=== PATIENT | female | born 1975 ===

== ENCOUNTER 2018-12-03 08:40 | Emergency (ER) | payer OTHER, MEDICAID, SELFPAY ==
[2018-12-03 09:16] VITALS: BP 129/83; PULSE 93; RESP 18; TEMP 36.9; O2SAT 96
--- NOTE | 2018-12-03 09:34 | ED_ITS ---
HPI - Abdominal Pain General Chief Complaint: Abdominal Pain Stated Complaint: throwing up x2 day,stomach pain Time Seen by Provider: 12/03/18 08:45 Source: patient Mode of arrival: Ambulatory Limitations: no limitations History of Present Illness HPI narrative: 43-year-old female former smoker presents with a chief complaint of nausea, vomiting and diarrhea for the past 2-3 days. She complains of gradually building upper abdominal pain that resolves with emesis. She does state that there was some blood in her vomit at 1 point but no longer. She is not dizzy nor weak or lightheaded. She does state that she has been taking Aleve for about the past 6 months for a bad hip. She denies the use of any blood thinners. She recently was on antibiotics for a tooth infection. She denies any international travel, exposure to ill persons or obviously bad food. MD complaint: abdominal pain Onset (ago): day(s) Pain Consistency: intermittent and now resolved Location: [facility] Severity: moderate Quality: cramping Radiation: none Migration to: no migration Relieving factors: vomiting Exacerbating factors: nothing Context: foreign travel Associated symptoms: nausea and vomiting Treatments prior to arrival: NSAIDs Related Data Home Medications Medication Instructions Recorded Confirmed buprenorphine-naloxone [Suboxone] 1 film BUCCAL DAILY 12/03/18 12/03/18 melatonin 10 mg PO BEDTIME PRN 12/03/18 12/03/18 naproxen sodium [Aleve] 660 mg PO BID 12/03/18 12/03/18 Previous Rx's Medication Instructions Recorded omeprazole 20 mg PO DAILY #30 cap 12/03/18 ondansetron 4 mg PO TID-QID PRN #10 tab 12/03/18 Allergies Allergy/AdvReac Type Severity Reaction Status Date / Time amoxicillin [AMOXICILLIN] Allergy Mild Verified 05/07/18 20:36 Penicillins [PENICILLINS] Allergy Mild Verified 05/07/18 20:36 terfenadine [From Seldane] Allergy Unknown Verified 05/07/18 20:36 Review of Systems Constitutional Constitutional: Denies chills, Denies fatigue, Denies fever(s), Denies frequent falls, Denies lethargy and Denies weakness Eyes Eyes: Denies change in vision, Denies eye discharge, Denies irritation and Denies loss of vision ENT Ears, Nose, Mouth, and Throat: Denies change in voice, Denies dizziness, Denies neck pain, Denies sore throat and Denies throat swelling Cardiovascular Cardiovascular: Denies chest pain, Denies irregular heart rhythm, Denies lightheadedness, Denies palpitations, Denies dyspnea, Denies dyspnea on exertion and Denies orthopnea Respiratory Respiratory: Denies cough, Denies dyspnea, Denies dyspnea on exertion and Denies wheezing Gastrointestinal Gastrointestinal: Reports abdominal pain, Denies change in bowel habits, Reports diarrhea, Reports nausea and Reports vomiting Genitourinary Genitourinary: Denies hematuria, Denies flank pain, Denies urinary incontinence and Denies urinary urgency Musculoskeletal Musculoskeletal: Denies back pain, Denies muscle weakness, Denies neck pain, Denies numbness and Denies tingling Integumentary/Breasts Skin/Breast: Denies pruritus, Denies erythema, Denies rash and Denies wounds Neurologic Neurologic: Denies behavioral changes, Denies confusion, Denies dizziness, Denies frequent falls, Denies loss of vision, Denies numbness, Denies tingling and Denies weakness Psychiatric Psychiatric: Denies anxiety, Denies behavioral changes, Denies confusion, Denies depression, Denies homicidal ideation and Denies suicidal ideation Endocrine Endocrine: Denies fatigue, Denies flushing and Denies palpitations Hematologic/Lymphatic Hematologic/Lymphatic: Denies easy bruising Allergic/Immunologic Allergic/Immunologic: Denies urticaria, Denies throat swelling and Denies wheezing Patient History Surgical History History of esophagogastroduodenoscopy (EGD) Status post delivery Status post laparoscopy Social History Smoking Status: Former smoker alcohol intake frequency: other Substance Use Type: does not use Exam Narrative Exam Narrative: GENERAL: [43] year old patient appears stated age. Well- nourished, well-developed patient, in mild distress. HEAD: Atraumatic. Normocephalic. EYES: Pupils equal round and reactive. Extraocular motions intact. No scleral icterus. No injection or drainage. ENT: Nose without bleeding, purulent drainage. Throat without erythema, tonsillar hypertrophy or exudate. Airway patent. NECK: Trachea midline. Non tender CARDIOVASCULAR: Regular rate and rhythm without murmurs, gallops, or rubs. RESPIRATORY: Clear to auscultation. Breath sounds equal bilaterally. No wheezes, rales, or rhonchi. GASTROINTESTINAL: Abdomen soft, non-tender, nondistended. EXTREMITIES: No edema or joint tenderness. BACK: Nontender without deformity or crepitance. No flank tenderness. NEURO: AOx3. SKIN: No rash or erythema of visible areas Initial Vital Signs Initial Vital Signs: Vital Signs Temperature 98.5 F 12/03/18 09:16 Pulse Rate 93 H 12/03/18 09:16 Respiratory Rate 18 12/03/18 09:16 Blood Pressure 129/83 12/03/18 09:16 Pulse Oximetry 96 12/03/18 09:16 Course Orders Ordered: ED Orders 12/03/18 09:25 Complete Blood Count AUTO DIFF Stat Comprehensive Metabolic Panel Stat Lipase Stat Prothrombin Time INR Stat Discontinued Medications Sodium Chloride (Normal Saline 0.9%) 1,000 mls @ 1,000 mls/hr IV BOLUS ONE Stop: 12/03/18 11:04 Last Infusion: 12/03/18 11:40 Dose: 0 mls/hr Documented by: Admin: 12/03/18 10:37 Dose: 1,000 mls/hr Documented by: DOT Vital Signs Vital signs: Vital Signs - 8 hr 12/03/18 09:16 12/03/18 11:09 12/03/18 12:43 Temperature 98.5 F Pulse Rate 93 H 62 72 Respiratory Rate 18 16 16 Blood Pressure 129/83 Blood Pressure [Left Arm] 115/67 124/70 Pulse Oximetry 96 97 94 MDM - Abdominal Pain Lab Data Result diagrams: 12/03/18 09:25 12/03/18 09:25 Labs: Lab Results 12/03/18 12/03/18 12/03/18 Range/Units 09:25 09:25 09:25 WBC 10.3 (4.5-11.0) X10^3/uL RBC 5.04 (4.0-5.2) X10^6/uL Hgb 15.4 (12.0-16.0) g/dL Hct 45.6 (36-46) % MCV 90.4 (80-100) fL MCH 30.6 (26-34) PG MCHC 33.9 (30-36) % RDW 13.1 (11.6-14.8) % Plt Count 467 H (150-400) X10^3/uL Neut % (Auto) 75.4 H (50-75) % Lymph % (Auto) 19.3 L (25-40) % Wright % (Auto) 4.9 (3-14) % Eos % (Auto) 0.1 L (2-4) % Baso % (Auto) 0.3 (0-2) % Neut # (Auto) 7800 H (5299-3976) /uL Lymph # (Auto) 2000 (6506-6163) /uL Wright # (Auto) 500 (0-900) /uL Eos # (Auto) 0 (0-450) /uL Baso # (Auto) 0 (0-100) /uL PT 11.8 (10.1-12.7) SECONDS INR 1.0 (0.9-1.3) Sodium 139 (137-145) mmol/L Potassium 4.0 (3.4-5.1) mmol/L Chloride 100 (98-107) mmol/L Carbon Dioxide 24 (22-32) mmol/L BUN 18 H (7-17) mg/dL Creatinine 0.60 (0.52-1.04) mg/dL Estimated GFR > 60.0 (>60) mL/min BUN/Creatinine Ratio 30.0 H (6-22) Glucose 123 H (70-100) mg/dL Calcium 10.1 (8.4-10.2) mg/dL Total Bilirubin 0.8 (0.2-1.3) mg/dL AST 33 (14-36) IU/L ALT 18 (9-52) IU/L Alkaline Phosphatase 90 (38-126) U/L Total Protein 8.3 H (6.3-8.2) g/dL Albumin 5.1 H (3.5-5.0) g/dL Globulin 3.2 (1.7-4.1) g/dL Albumin/Globulin Ratio 1.6 (1.0-2.8) Lipase 78 (23-300) U/L Point of care testing: Urine Dip Bedside Urine Glucose Negative Bedside Urine Bilirubin - Negative Bedside Urine Ketone - Negative Urine Specific [place] 1.025 Bedside Urine Occult Blood - Negative Bedside Urine pH 6.0 Bedside Urine Protein +/- 15 Bedside Urine Urobilinogen +/- 1mg Bedside Urine Nitrite - Negative Bedside Urine Leukocytes - Negative Esterase MDM Narrative Medical decision making narrative: Multiple etiologies for patient's symptoms considered including: [Viral gastritis versus gastroenteritis versus ulcer pain versus other] Patient's symptoms improved or duration of stay with above-stated therapies. Findings and discharge diagnosis discussed with patient/family followed by verbalization of understanding Return precautions discussed with patient/family whom verbalize understanding. Discharge Plan Departure Patient Disposition: Home Clinical Impression: Vomiting Qualifiers: Vomiting type: unspecified Vomiting Intractability: non-intractable Nausea presence: with nausea Qualified Code(s): R11.2 - Nausea with vomiting, unspecified Diarrhea Qualifiers: Diarrhea type: unspecified type Qualified Code(s): R19.7 - Diarrhea, uns pecified Discharge Date/Time: 12/03/18 13:14 Instructions: DI for Viral Gastroenteritis -- Adult Activity Restrictions/Additional Instructions: *You have been diagnosed with [vomiting and diarrhea, likely viral] *What to do: *Take medications as directed: Rx sent to [facility] at your request *Follow up with your primary care provider in 2-3 days, call for an appointment. Let them know you were seen in the Emergency Department and that we ask that you be seen in follow up *Return to ER if you should have any new, worsening or concerning symptoms 1. Drink plenty of fluids with frequent small sips. 2. For the next 24 hours a clear liquid diet is advised. After that please employ a brat diet which would include bananas, rice, apples, toast. 3. Please take medications as directed. 4. Please follow-up with your doctor in the next 1-2 days. Call the office for an appointment. 5. Please return to the emergency Department for any worsening or persistent symptoms, such as increasing pain or fever. Prescriptions: New ondansetron 4 mg tablet,disintegrating 4 mg PO TID-QID PRN (Reason: nausea and vomiting) Qty: 10 RF: 0 omeprazole 20 mg capsule,delayed release(DR/EC) 20 mg PO DAILY Qty: 30 RF: 0 No Action naproxen sodium [Aleve] 220 mg Tablet 660 mg PO BID RF: 0 melatonin 5 mg Tablet 10 mg PO BEDTIME PRN (Reason: Insomnia) RF: 0 buprenorphine-naloxone [Suboxone] 8-2 mg Film 1 film BUCCAL DAILY RF: 0
[2018-12-03 10:12] LABS: Add Manual Diff / Slide Review NO; Basophils Absolute Auto 0 /uL (0-100); Basophils Percent Auto 0.3 % (0-2); Eosinophils Absolute Auto 0 /uL (0-450); Eosinophils Percent Auto 0.1 % (2-4); Hematocrit 45.6 % (36-46); Hemoglobin 15.4 g/dL (12.0-16.0); Lymphocytes Absolute Auto 2000 /uL (1100-4500); Lymphocytes Percent Auto 19.3 % (25-40); Mean Corpuscular HGB Conc 33.9 % (30-36); Mean Corpuscular Hemoglobin 30.6 PG (26-34); Mean Corpuscular Volume 90.4 fL (80-100); Monocytes Absolute Auto 500 /uL (0-900); Monocytes Percent Auto 4.9 % (3-14); Neutrophils Absolute Auto 7800 /uL (1500-7000); Neutrophils Percent Auto 75.4 % (50-75); Platelet Count 467 X10^3/uL (150-400); Red Blood Cell Count 5.04 X10^6/uL (4.0-5.2); Red Cell Distribution Width 13.1 % (11.6-14.8); White Blood Cell Count 10.3 X10^3/uL (4.5-11.0)
[2018-12-03 10:22] LABS: Prothrombin Time 11.8 SECONDS (10.1-12.7)
[2018-12-03 10:24] LABS: Alanine Aminotransferase 18 IU/L (9-52); Albumin 5.1 g/dL (3.5-5.0); Albumin Globulin Ratio 1.6 (1.0-2.8); Alkaline Phosphatase 90 U/L (38-126); Aspartate Aminotransferase 33 IU/L (14-36); Bilirubin Total 0.8 mg/dL (0.2-1.3); Blood Urea Nitrogen 18 mg/dL (7-17); Calcium 10.1 mg/dL (8.4-10.2); Carbon Dioxide 24 mmol/L (22-32); Chloride 100 mmol/L (98-107); Estimated Glomerular Filt Rate > 60.0 mL/min (>60); Globulin 3.2 g/dL (1.7-4.1); Glucose 123 mg/dL (70-100); HEMOLYSIS < 15 (0-50); Lipase 78 U/L (23-300); Sodium 139 mmol/L (137-145); Total Protein 8.3 g/dL (6.3-8.2)
[2018-12-03] MEDS: SODIUM CHLORIDE 0.9% 1,000 ML 1000 ML IV (10:37)
[2018-12-03 11:09] VITALS: BP 115/67; PULSE 62; RESP 16; O2SAT 97
[2018-12-03 12:43] VITALS: BP 124/70; PULSE 72; RESP 16; O2SAT 94
== END 2018-12-03 13:14 | disposition home or self-care (01) ==
PROVIDERS: Emergency Provider Emergency Medicine; Family Provider Family Medicine
DX: R10.9 Unspecified abdominal pain (principal); R11.2 Nausea with vomiting, unspecified; R19.7 Diarrhea, unspecified
CPT/HCPCS: 36415; 80053; 81003; 83690; 85025; 85610; 96360; 99283; 99284

== ENCOUNTER → 2020-07-26 13:21 | Outpatient (CLI) | payer OTHER, MEDICAID, SELFPAY ==
--- NOTE | 2020-07-26 | DI.NM.S_ITS ---
PROCEDURE: NM EXERCISE TREADMILL NON NUC COMPARISON: None. INDICATIONS: Chest pain, unspecified FINDINGS: The patient exercised for 6 minutes and 10 seconds, reaching 6.2 METs, JERZY +25%. 89% of maximum predicted heart rate achieved. Mildly hypertensive response to exercise (resting BP 130/80mmHg, max BP 202/104mmHg). No ECG evidence of ischemia. No angina during the study. IMPRESSION: Low risk, normal treadmill ECG only stress test without angina. Below average exercise capacity (JERZY +25%). Mildly hypertensive response to exercise (resting BP 130/80mmHg, max BP 202/104mmHg). Dictated by: Jose Vyas MD on 07/28/2020 at 13:11 Approved by: Jose Vyas MD on 07/28/2020 at 13:14
--- NOTE | 2020-07-26 | DI.ECHO.S_ITS ---
[facility]---------+ [facility] +---------+ : : [address] : : : : [phone] : : : : Phone: [phone] Echocardiogram Report + + :Name: CASEY GALLEGO Study Date: 07/26/2020 Height: 63 in : :[facility] ReadingLocation: Weight: 200 lb : : Gender: Female BSA: 1.9 m2 : :: 1975 Age: 45 yrs BP: 145/83 mmHg: :Reason For Study: Chest pain : :Ordering Physician: GEOVANNA, : :JAD Performed By: Shravan East : :Referring: JAD AUSTIN : + + Interpretation Summary Normal echo study. Procedure: A two-dimensional transthoracic echocardiogram with color flow and Doppler was performed. The study quality was technically adequate. There is no prior echocardiogram noted for this patient. The patient was in sinus rhythm with heart rates between 61-86 bpm during the exam. Left Ventricle: The left ventricle is normal in size and wall thickness. Left ventricular systolic function is normal. The ejection fraction is estimated to be 60-65%. There are no focal wall motion abnormalities. Diastolic parameters suggest probable normal left ventricular diastolic function and normal filling pressures. Right Ventricle: The right ventricle is normal in size and function. Atria: Both atria are normal in size. There is no Doppler evidence for an interatrial shunt. Mitral Valve: The mitral valve is normal in structure and function. There is trace mitral regurgitation. Aortic Valve: The aortic valve is normal in structure and function. No aortic regurgitation is present. Tricuspid Valve: The tricuspid valve is normal in structure and function. There is trace tricuspid regurgitation. The right ventricular systolic pressure is estimated to be at least 29 mmHg based on an estimated right atrial pressure of 3 mm Hg. Pulmonic Valve: The pulmonic valve is not well visualized. There is no pulmonic valvular regurgitation. Great Vessels: The aortic root is normal size. The dimensions of the ascending aorta are normal. The IVC is of normal diameter and collapses greater than 50% with a sniff. This suggests a low right atrial pressure of 3 mm Hg. Pericardium/ Pleura There is no pericardial effusion. There is no pleural effusion. MMode/2D Measurements & Calculations LVIDd: 5.3 cm LVOT diam: 2.0 cm LVIDs: 3.5 cm Ao root diam: 3.0 cm FS: 34.2 % asc Aorta Diam: 2.8 cm IVSd: 0.87 cm LVPWd: 0.69 cm LV españa. diameter/BSA (cm/m^2): 2.7 LV sys. diameter/BSA (cm/m^2): 1.8 LA A2 area: 15.4 cm2 RA long axis: 4.1 cm LA A4 area: 15.4 cm2 RA area: 13.4 cm2 LA length (vol): 4.1 cm RA vol: 37.2 ml LA vol: 48.6 ml RA : 19.2 ml/m2 LA vol index: 25.1 ml/m2 IVC diam: 1.9 cm RVD1 (basal): 2.9 cm TAPSE: 2.6 cm Doppler Measurements & Calculations Ao V2 max: 130.7 cm/sec LVOT Max Stas: 126.4 cm/sec Ao V2 mean: 94.2 cm/sec LV V1 max P.4 mmHg Ao max P.8 mmHg LV V1 VTI: 26.4 cm Ao mean P.9 mmHg SHERRY(I,D): 3.2 cm2 Ao V2 VTI: 27.4 cm SHERRY(V,D): 3.2 cm2 sev ratio: 0.97 SHERRY indexed to BSA (cm^2/m^2): 1.6 MV E max stas: 102.0 cm/sec TR max stas: 256.0 cm/sec MV A max stas: 60.0 cm/sec TR max P.2 mmHg MV E/A: 1.7 PA V2 max: 88.4 cm/sec Med Peak E' Stas: 12.5 cm/sec PA V2 mean: 61.3 cm/sec E/E' med: 8.1 PA mean P.7 mmHg Lat Peak E' Stas: 13.2 cm/sec PA pr(Accel): 29.2 mmHg E/E' lat: 7.8 E/e' average: 7.9 MV dec time: 0.21 sec SV(LVOT): 87.2 ml Electronically signed by: Eli Alvarez on Reading Physician:07/26/2020 03:23 PM
--- NOTE | 2020-07-26 15:47 | PM.TREADMILL ---
Cardiac Stress Test Report Referral & Results Date Patient Seen: 07/26/20 Time Patient Seen: 15:47 Requesting provider: Jazmin Mccarthy Indication: Chest pain Rest ECG: Sinus rhythm Procedure Note: Standard Kwame protocol, 6:01, 6.2 METS Reduced exercise capacity, JERZY +25% Normal hemodynamic response to exercise No significant ST changes at peak exercise No ectopy Test stopped due to hip pain Impression: Normal exercise stress test Please note: Actual ECG tracings can be found in the PACS system.
== END ==
PROVIDERS: Family Provider Family Medicine; PCP Physician Assistant; Referring Provider Physician Assistant; Visit Provider Physician Assistant
DX: R07.9 Chest pain, unspecified (principal)
CPT/HCPCS: 93017; 93306

== ENCOUNTER → 2021-03-24 12:26 | Outpatient (ROUT) | payer OTHER, MEDICAID, SELFPAY ==
[2021-03-24 13:20] LABS: COVID19 -Nasal RAPID Negative (Negative)
== END ==
PROVIDERS: Family Provider Family Medicine; PCP Physician Assistant; Visit Provider Physician Assistant
DX: Z20.822 Contact with and (suspected) exposure to COVID-19 (principal)
CPT/HCPCS: 87635

== ENCOUNTER → 2021-09-19 15:34 | Outpatient (CLI) | payer OTHER, MEDICAID, SELFPAY ==
--- NOTE | 2021-09-19 15:40 | DI.RAD.S_ITS ---
PROCEDURE: XR HIP W PEL IF DONE RT 2V INDICATIONS: HIP PAIN TECHNIQUE: 2 views of the hip were acquired. COMPARISON: [facility], CR, XR PELVIS WITH LATERAL HIP RIGHT, 09/03/2018, 16:08. FINDINGS: Bones: No fractures or dislocations. No suspicious bony lesions. The visualized pelvic ring appears intact. There is severe narrowing of the right hip joint with near bone on bone contact, subchondral sclerosis and cystic change. Periarticular osteophyte formation is present. Degenerative disc and facet disease involves the inferior lumbar spine. Soft tissues: No suspicious soft tissue calcifications or masses. IMPRESSION: Severe right hip joint degeneration. Dictated by: Pa Bruno [facility] Interpreted: Kalin Farrell MD on 09/19/2021 at 16:01 Transcribed by: SERGO on 09/19/2021 at 16:02 Approved by: Kalin Farrell M.D. on 09/19/2021 at 16:15
== END ==
PROVIDERS: Family Provider Family Medicine; PCP Physician Assistant; Referring Provider Physician Assistant; Visit Provider Physician Assistant
DX: M25.551 Pain in right hip (principal); M16.11 Unilateral primary osteoarthritis, right hip
CPT/HCPCS: 73502

== ENCOUNTER → 2021-11-05 11:50 | Outpatient (CLI) | payer OTHER, MEDICAID, SELFPAY ==
[2021-11-05 13:10] LABS: Add Manual Diff / Slide Review NO; Basophils Absolute Auto 100 /uL (0-100); Basophils Percent Auto 0.8 % (0-2); Eosinophils Absolute Auto 100 /uL (0-450); Hematocrit 42.1 % (36-46); Hemoglobin 14.4 g/dL (12.0-16.0); Lymphocytes Absolute Auto 2200 /uL (1100-4500); Mean Corpuscular HGB Conc 34.2 % (30-36); Mean Corpuscular Hemoglobin 31.4 PG (26-34); Mean Corpuscular Volume 91.9 fL (80-100); Monocytes Absolute Auto 500 /uL (0-900); Monocytes Percent Auto 8.3 % (3-14); Neutrophils Absolute Auto 3400 /uL (1500-7000); Neutrophils Percent Auto 53.9 % (50-75); Platelet Count 291 X10^3/uL (150-400); Red Blood Cell Count 4.58 X10^6/uL (4.0-5.2); Red Cell Distribution Width 13.8 % (11.6-14.8); White Blood Cell Count 6.3 X10^3/uL (4.5-11.0)
[2021-11-05 13:25] LABS: Alanine Aminotransferase 16 IU/L (<35); Albumin 4.1 g/dL (3.5-5.0); Albumin Globulin Ratio 1.5 (1.0-2.8); Alkaline Phosphatase 80 U/L (38-126); Aspartate Aminotransferase 21 IU/L (14-36); BUN Creatinine Ratio 17.7 (6-22); Bilirubin Total 0.6 mg/dL (0.2-1.3); Blood Urea Nitrogen 11 mg/dL (7-17); Calcium 9.3 mg/dL (8.4-10.2); Carbon Dioxide 23 mmol/L (22-32); Chloride 101 mmol/L (98-107); Cholesterol 172 mg/dL (140-199); Estimated Glomerular Filt Rate > 60 mL/min (>60); Globulin 2.8 g/dL (1.7-4.1); Glucose 92 mg/dL (70-100); HDL Cholesterol 48 mg/dL (40-60); HEMOLYSIS < 15 (0-50); LDL Cholesterol Calculated 96 mg/dL (<100); Potassium 4.8 mmol/L (3.4-5.1); Sodium 136 mmol/L (137-145); Total Protein 6.9 g/dL (6.3-8.2); Triglycerides 142 mg/dL (35-150)
[2021-11-05 13:56] LABS: TSH w/ Reflex to FT4 0.58 uIU/mL (0.47-4.68)
[2021-11-05 14:39] LABS: Vitamin D 25 Hydroxy (D3) 25.6 ng/mL (30.0-100.0)
== END ==
PROVIDERS: Family Provider Family Medicine; PCP Physician Assistant; Referring Provider Family Medicine; Visit Provider Family Medicine
DX: R53.83 Other fatigue (principal); E56.9 Vitamin deficiency, unspecified; R12 Heartburn; Z13.220 Encounter for screening for lipoid disorders
CPT/HCPCS: 36415; 80053; 80061; 82306; 84443; 85025

== ENCOUNTER 2021-11-23 00:29 | Observation (INO) | payer OTHER, MEDICAID, SELFPAY ==
[2021-11-23 00:38] VITALS: BP 149/76; PULSE 96; RESP 20; TEMP 36.8; O2SAT 94; BMI 35.0
--- NOTE | 2021-11-23 00:47 | DI.RAD.S_ITS ---
PROCEDURE: XR SOFT TISSUE NECK INDICATIONS: states fishbone stuck in throat TECHNIQUE: 2 views of the neck were acquired. COMPARISON: None. FINDINGS: Airway: The airway appears patent. Soft tissues: Prevertebral soft tissues are normal in thickness. The epiglottis and aryepiglottic folds appear normal. No soft tissue gas. No definite radiopaque foreign bodies identified within the soft tissues of the neck. Bones: No suspicious bony lesions. Visualized cervical spine is normally aligned. IMPRESSION: 1. No definite radiopaque foreign bodies. Dictated by: Jesus Jesus M.D. on 11/23/2021 at 1:25 Approved by: Jesus Jesus M.D. on 11/23/2021 at 1:26
--- NOTE | 2021-11-23 05:40 | ED.SKABFB ---
HPI - Skin/Abscess/Foreign Bdy General Chief complaint: Skin/Abscess/Foreign Body Stated complaint: SALMON BONE STUCK IN THROAT Time Seen by Provider: 11/23/21 05:34 Source: patient Mode of arrival: Ambulatory Limitations: no limitations History of Present Illness HPI narrative: Patient is a 46-year-old female history of ADHD who presents with a fish bone in her throat. She states that she was eating salmon last night around 630 and swallowed a piece. She felt it is she has been trying to get it out she tried throwing up. She feels like it is stabbing inside her esophagus. She is managing her secretions without any difficulty. Related Data Home Medications Medication Instructions Recorded Confirmed buprenorphine 8 mg-naloxone 2 mg 1 film buccal DAILY 12/03/18 12/03/18 sublingual film (Suboxone) melatonin 5 mg tablet 10 mg PO BEDTIME PRN Insomnia 12/03/18 12/03/18 naproxen sodium 220 mg tablet 660 mg PO BID 12/03/18 12/03/18 (Aleve) Previous Rx's Medication Instructions Recorded omeprazole 20 mg capsule,delayed 20 mg PO DAILY #30 caps 12/03/18 release ondansetron 4 mg disintegrating 4 mg PO TID-QID PRN nausea and 12/03/18 tablet vomiting #10 tabs Allergies Allergy/AdvReac Type Severity Reaction Status Date / Time amoxicillin [AMOXICILLIN] Allergy Mild Verified 11/23/21 00:38 Penicillins [PENICILLINS] Allergy Mild Verified 11/23/21 00:38 terfenadine [From Seldane] Allergy Unknown Verified 11/23/21 00:38 Review of Systems Review of Systems Narrative: GENERAL: Denies chills,fever HEENT: See HPI RESPIRATORY: Denies dyspnea, cough, wheezing CARDIOVASCULAR: Denies chest pain, palpitations GASTROINTESTINAL: Denies nausea, vomiting MUSCULOSKELETAL: Denies extremity pain, injury SKIN: No rash, no laceration, no pruritus NEUROLOGIC: Denies weakness, dizziness, headache, numbness 8 point review of systems is negative except for those stated above and HPI Patient History Surgical History History of esophagogastroduodenoscopy (EGD) Status post delivery Status post laparoscopy Social History Smoking Status: Former smoker Smoking Status: Former smoker alcohol intake frequency: holidays/special occasions only Substance Use Type: marijuana Exam Initial Vital Signs Initial Vital Signs: Vital Signs Temperature 98.2 F 11/23/21 00:38 Pulse Rate 96 H 11/23/21 00:38 Respiratory Rate 20 11/23/21 00:38 Blood Pressure 149/76 H 11/23/21 00:38 Pulse Oximetry 94 11/23/21 00:38 Oxygen Delivery Method 11/23/21 00:38 GENERAL: Well-appearing, well-nourished and in no acute distress. CARDIOVASCULAR: peripheral pulses in tact, cap refill <2 sec RESPIRATORY: No respiratory distress, speaks in full sentences without difficulty EXTREMITIES: Normal range of motion, no clubbing or edema. Neurovascularly intact NEUROLOGICAL: Cranial nerves II through XII grossly intact. Normal gait and speech. SKIN: Warm, dry, no petechiae, no rashes or lesions. Course Orders Ordered: ED Orders 11/23/21 00:47 XR soft tissue neck Stat Vital Signs Vital signs: Vital Signs - 8 hr 11/23/21 00:38 Temperature 98.2 F Pulse Rate 96 H Respiratory Rate 20 Blood Pressure 149/76 H Pulse Oximetry 94 Oxygen Delivery Method Room Air MDM - Skin/Abscess/Foreign Bdy Imaging Data X-ray soft tissue: Radiologist's Impression: XRay Report Signed Patient: Soniya Yanez MR#: [id number] : 1975 Acct:[id number] Age/Sex: 46 / F Date of Service: 11/23/21 Loc: ED Accession Number: [id number] ?? Procedure: XR soft tissue neck Ordering Provider: Reyna Barnard D.O. PROCEDURE:? XR SOFT TISSUE NECK ? INDICATIONS:? states fishbone stuck in throat ? TECHNIQUE:? 2 views of the neck were acquired.? ? COMPARISON:? None. ? FINDINGS:? ? Airway:? The airway appears patent.? ? Soft tissues:? Prevertebral soft tissues are normal in thickness.? The epiglottis and aryepiglottic folds appear normal.? No soft tissue gas.? No definite radiopaque foreign bodies identified within the soft tissues of the neck. ? Bones:? No suspicious bony lesions.? Visualized cervical spine is normally aligned.? ? IMPRESSION:? ? 1.? No definite radiopaque foreign bodies. ? ? Dictated by: Jesus Jesus M.D. on 11/23/2021 at 1:25 ?? MDM Narrative Medical decision making narrative: Dr. Mead called in regard to her probable salmon bone stuck in esophagus. She will be in later to see patient and likely go to OR for EGD Discharge Plan Departure Patient Disposition: Admitted to Surgery Clinical Impression: Esophageal foreign body Admit Date/Time: 11/23/21 07:07 Admit Provider: Aimee Mead
[2021-11-23 08:35] LABS: COVID19 -Nasal RAPID Negative (Negative)
[2021-11-23 08:36] VITALS: BP 145/98; PULSE 82; RESP 18; TEMP 36.6; O2SAT 99
[2021-11-23] MEDS: LACTATED RINGERS 1,000 ML 42 ML IV (08:39)
[2021-11-23 08:51] VITALS: BMI 35.0
--- NOTE | 2021-11-23 08:57 | PC.NURSE ---
pt swallowed fish bone
--- NOTE | 2021-11-23 09:05 | P.HP_ITS ---
History of Present Illness History of Present Illness Date Patient Seen: 11/23/21 Time Patient Seen: 09:06 Date of Onset of Symptoms: 11/22/21 Chief complaint: SALMON BONE STUCK IN THROAT Narrative: Fish bone in neck since dinner last evening. Can handle her own secretions. Bone feels high in the neck. No previous episodes. Patient History Surgical History History of esophagogastroduodenoscopy (EGD) Status post delivery Status post laparoscopy Family & Social History Social History: household members spouse Prior Living Arrangements House Safety & Behavioral: Feels Safe in Current Yes Environment Tobacco & Substance use: Smoking Status Former smoker alcohol intake frequency a few times a month Substance Use Type marijuana Meds Home Medications and Allergies Home Medications Medication Instructions Recorded Confirmed Type buprenorphine 8 mg-naloxone 2 mg 1 film buccal DAILY 12/03/18 12/03/18 History sublingual film (Suboxone) melatonin 5 mg tablet 10 mg PO BEDTIME PRN Insomnia 12/03/18 12/03/18 History naproxen sodium 220 mg tablet 660 mg PO BID 12/03/18 12/03/18 History (Aleve) omeprazole 20 mg capsule,delayed 20 mg PO DAILY #30 caps 12/03/18 Rx release ondansetron 4 mg disintegrating 4 mg PO TID-QID PRN nausea and 12/03/18 Rx tablet vomiting #10 tabs Allergies Allergy/AdvReac Type Severity Reaction Status Date / Time amoxicillin [AMOXICILLIN] Allergy Mild Verified 11/23/21 00:38 Penicillins [PENICILLINS] Allergy Mild Verified 11/23/21 00:38 terfenadine [From Seldane] Allergy Unknown Verified 11/23/21 00:38 Review of Systems Review of Systems ROS: Yes All systems reviewed with the patient and are negative except as other kirkpatrick documented Exam Vital Signs (past 8 hours): - 11/23/21 08:36 Temperature 97.9 F Pulse Rate 82 Respiratory Rate 18 Blood Pressure 145/98 H Pulse Oximetry 99 Oxygen Delivery Method Room Air Oxygen Delivery Method Room Air Const General: cooperative, healthy appearing and comfortable [facility] Head: normal to inspection Ears: hearing grossly normal bilaterally Face and sinus: normal facial exam Teeth and gingiva: dentition normal Eyes General: appearance normal, both eyes and all related structures Neck Neck: trachea midline Chest Chest: normal inspection of the chest Resp Effort & Inspection: normal respiratory effort and able to speak in complete sentences Cardio Rate: regular rate Rhythm: regular rhythm GI Palpation: soft Skin General: turgor normal Neuro General: patient alert, patient awake and patient oriented x3 Extrem General: full ROM Psych Appearance: grossly normal Affect: normal affect Judgment: judgment good Objective Labs Labs: Laboratory Results - last 24 hr 11/23/21 07:47 SARS-CoV-2 (PCR) Negative Assessment & Plan Assessment & Plan narrative: Foriegn body in esophagus EGD with removal of foreign body COVID-19 COVID-19 status: Negative Time Spent With Patient Critical Care time: I spent a total of [] minutes of critical care time on this patient's care today; this time is exclusive of procedural time.
--- NOTE | 2021-11-23 09:47 | PM.OP.1 ---
Operative Date/Time/Diagnoses Date of procedure: 11/23/21 Time of procedure: 09:47 Pre-op diagnosis: Foreign body in the esophagus Post-op diagnosis: same Procedure & Clinicians Procedure: EGD with removal of foreign body Same procedure as scheduled: Yes Indications: Foreign body esophagus Surgeon: Aimee Mead Click Yes if Unassisted: Yes Anesthesia Type: General Operative Notes Findings: Small bone fragment in the soft tissue on the right side of throat next the uvula with surrounding irritation Closure Type: not applicable Specimen(s): none sent Estimated Blood Loss (mL): 0 Blood products transfused: none Procedure in detail: Prep diagnosis: Foreign body in the esophagus Postop diagnosis: Same Operative procedure: EGD with removal foreign body Anesthetic: General with ET tube intubation Findings: Small bone fragment in the throat just right of the uvula Procedure: Patient placed in a supine position. Anesthetic was provided. Scope was inserted into the oral cavity and I slowly migrated across the base of the tongue discovered irritation in the right side of the soft palate next the uvula and a small white bone fragment. This was removed with forceps and then suctioned into the canister without retrieval. Patient was awaken, extubated, taken to recovery room in stable condition with needle, instrument, sponge counts correct. Blood loss: None Specimen: None
[2021-11-23 09:48] VITALS: BP 139/56; PULSE 90; RESP 26; TEMP 36.4; O2SAT 99
[2021-11-23 09:53] VITALS: BP 134/90; PULSE 80; RESP 12; O2SAT 98
[2021-11-23 09:58] VITALS: BP 131/82; PULSE 78; RESP 16; O2SAT 98
[2021-11-23 10:05] VITALS: BP 117/83; PULSE 73; RESP 16; TEMP 36.2; O2SAT 99
== END 2021-11-23 10:20 | disposition home or self-care (01) ==
LOC: ED 05:34 → AC 07:08
PROVIDERS: Admitting Provider Surgery; Emergency Provider Emergency Medicine; Family Provider Family Medicine; PCP Physician Assistant; Referring Provider Emergency Medicine; Visit Provider Surgery
PROC: 0DJ08ZZ Inspection of Upper Intestinal Tract, Via Natural or Artificial Opening Endoscopic (ICD-10-PCS; CPT 43235; principal; 2021-11-23 09:00)
DX: T18.128A Food in esophagus causing other injury, initial encounter (principal); J45.20 Mild intermittent asthma, uncomplicated; F90.9 Attention-deficit hyperactivity disorder, unspecified type; Z20.822 Contact with and (suspected) exposure to COVID-19
CPT/HCPCS: 43247; 70360; 87635; 99218; 99281; 99283; C9803; G0378; J1100; J2405; J2704; J3010

== ENCOUNTER 2022-03-10 10:45 | Outpatient (RCR) | payer OTHER, MEDICAID, SELFPAY ==
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
--- NOTE | 2022-01-17 15:54 | PT.OPPOC ---
Physical, Occupational & Speech Therapy At [facility] Current Diagnoses Unilateral primary osteoarthritis, right hip (01/17/22) Pain in right hip (01/17/22) Visit Care Team Role Provider Type JW Fowler Family Provider Physician Primary Care Provider Specialty: Nursing Address: [address] [place], [address] Email: Ariel Gar MD Attending Provider Non-Staff Referring Provider Specialty: Orthopedics Orthopedic Surgery Address: [address] [place], [address] Email: Plan Of Care PT-OP-T Assessment and Plan Start: 01/11/22 15:35 Freq: Status: Active Protocol: Document 01/17/22 13:45 AMB (Rec: 01/17/22 22:18 AMB [id number]) Physical Therapy Assessment Rehab Potential Rehabilitation Potential Good Evaluation Complexity Number of Personal Factors/Comorbidities 1-2 Clinical Presentation at Evaluation Evolving Impairments Impairments Activity Tolerance,Functional Activities,Gait,Pain,ROM, Strength Goals ROM Short Term Goal (STG) Soniya will improve her active hip flexion to 120 degrees. STG Duration 5 weeks Detention Goal (LTG) Soniya will have at least 10 degrees of hip extension. LTG Duration 10 weeks Two Impairment Pain Short Term Goal (STG) Soniya will perform all bed mobility with hip pain of 2/10 or less. STG Duration 4 weeks Detention Goal (LTG) Soniya will perform all lower body dressing without an increase in baseline pain. LTG Duration 10 weeks One Impairment Gait Short Term Goal (STG) Pt will ambulate without antalgia and without AD for 100 feet over smooth surface. STG Duration 4 weeks Rn Surgery Icu Goal (LTG) Pt will ascend and descend a flight of stairs without railing with an alternating gait pattern. LTG Duration 10 weeks Assessment Summary Assessment Soniya attends physical therapy with a high level of post op pain. She is utilizing a 4WW that is too short for and is shortening her step length and not putting full weight through the surgical leg. She has been icing and doing isometrics at home, but has not attempted the 14 stairs up to her bedroom yet. She is lacking both strength and ROM in the hip and is tender to palpation and swollen and bruised. She will benefit from physical therapy to manage her post op pain, encourage her in appropriate strengthening and stretching and gait training as needed. Physical Therapy Plan Frequency and Duration Frequency of Treatment 2x/Week Duration of treatment (weeks) 10 Plan of Care Start Date 01/17/22 Plan of Care End Date 03/28/22 Therapeutic Interventions Therapeutic Interventions Aquatic Therapy,Balance Training,Gait Training,Home Exercise Program,Manual Therapy,Neuromuscular Re- education,Self-Care/Home Management,Therapeutic Activities,Therapeutic Exercises Modalities Cold Pack/Ice Massage,Electric Stimulation,Hot Packs, Ultrasound Next Visit Focus/Plan Next Note Type Treatment Note Next Visit Plan Review heel slides, PPT, sit to stand, progress HEP as tolerated. Gait training including AD fitting and stairs. Modalities/manual for pain/swelling reduction. Plan of Care Dates Plan of Care Start Date 01/17/22 Plan of Care End Date 03/28/22 Electronically Signed by: Faiza Mayfield, PT 01/18/22 [id number] If you are in agreement with this Plan of Care, please return a signed and dated copy. I have reviewed this Plan of Care and certify that the skilled therapy services above are required to meet the patient?s needs. Physician Signature Date Printed Name and Credentials Clinical Instructor Signature Printed Name and Credentials
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
--- NOTE | 2022-01-27 10:35 | PT-OP ANOTE ---
Spoke with pt regarding missed 10:00 am PT appointment and she thought it was at 1:15p. Pt apologized and does not have a way to come now. Pt does stated weeping has stopped. Confirmed next appt w/ PT Faiza Almendarez 01/31 at 8:15am.
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
== END 2022-05-08 11:14 | disposition home or self-care (01) ==
LOC: PHYS 10:45
PROVIDERS: Family Provider Family Medicine; PCP Family Medicine; Referring Provider Orthopaedic Surgery; Visit Provider Orthopaedic Surgery
DX: M16.11 Unilateral primary osteoarthritis, right hip (principal); M25.551 Pain in right hip
CPT/HCPCS: 97110; 97116; 97140; 97162; 97535

== ENCOUNTER → 2022-04-17 10:14 | Outpatient (CLI) | payer OTHER, MEDICAID, SELFPAY ==
[2022-04-17 11:40] LABS: Alanine Aminotransferase 18 IU/L (<35); Albumin 4.3 g/dL (3.5-5.0); Albumin Globulin Ratio 1.3 (1.0-2.8); Alkaline Phosphatase 107 U/L (38-126); Aspartate Aminotransferase 24 IU/L (14-36); Bilirubin Total 0.3 mg/dL (0.2-1.3); Blood Urea Nitrogen 12 mg/dL (7-17); Calcium 8.5 mg/dL (8.4-10.2); Carbon Dioxide 25 mmol/L (22-32); Chloride 102 mmol/L (98-107); Cholesterol 179 mg/dL (140-199); Estimated Glomerular Filt Rate > 60 mL/min (>60); Globulin 3.2 g/dL (1.7-4.1); Glucose 97 mg/dL (70-100); HDL Cholesterol 45 mg/dL (40-60); HEMOLYSIS 15 (0-50); LDL Cholesterol Calculated 105 mg/dL (<100); Sodium 137 mmol/L (137-145); Total Protein 7.5 g/dL (6.3-8.2); Triglycerides 146 mg/dL (35-150)
[2022-04-17 12:04] LABS: TSH w/ Reflex to FT4 0.28 uIU/mL (0.47-4.68)
[2022-04-17 12:30] LABS: Free T4, Direct Thyroxine 1.26 ng/dL (0.78-2.19)
== END ==
PROVIDERS: Family Provider Family Medicine; PCP Family Medicine; Referring Provider Family Medicine; Visit Provider Family Medicine
DX: Z13.220 Encounter for screening for lipoid disorders (principal); R53.83 Other fatigue; Z79.899 Other long term (current) drug therapy
CPT/HCPCS: 36415; 80053; 80061; 84439; 84443

== ENCOUNTER → 2022-10-13 13:50 | Outpatient (CLI) | payer OTHER, SELFPAY ==
[2022-10-13 15:39] LABS: Add Manual Diff / Slide Review NO; Basophils Absolute Auto 100 /uL (0-100); Basophils Percent Auto 0.9 % (0-2); Eosinophils Absolute Auto 200 /uL (0-450); Eosinophils Percent Auto 2.7 % (2-4); Hematocrit 39.5 % (36-46); Hemoglobin 13.4 g/dL (12.0-16.0); Lymphocytes Absolute Auto 2100 /uL (1100-4500); Lymphocytes Percent Auto 35.8 % (25-40); Mean Corpuscular HGB Conc 33.9 % (30-36); Mean Corpuscular Hemoglobin 29.6 PG (26-34); Mean Corpuscular Volume 87.2 fL (80-100); Monocytes Absolute Auto 400 /uL (0-900); Monocytes Percent Auto 7.8 % (3-14); Neutrophils Absolute Auto 3000 /uL (1500-7000); Neutrophils Percent Auto 52.8 % (50-75); Platelet Count 359 X10^3/uL (150-400); Red Blood Cell Count 4.52 X10^6/uL (4.0-5.2); Red Cell Distribution Width 14.6 % (11.6-14.8); White Blood Cell Count 5.8 X10^3/uL (4.5-11.0)
[2022-10-13 16:07] LABS: Alanine Aminotransferase 25 IU/L (<35); Albumin Globulin Ratio 1.4 (1.0-2.8); Alkaline Phosphatase 80 U/L (38-126); Aspartate Aminotransferase 28 IU/L (14-36); BUN Creatinine Ratio 22.6 (6-22); Bilirubin Total 0.7 mg/dL (0.2-1.3); Blood Urea Nitrogen 12 mg/dL (7-17); Calcium 8.8 mg/dL (8.4-10.2); Carbon Dioxide 21 mmol/L (22-32); Chloride 104 mmol/L (98-107); Cholesterol 170 mg/dL (140-199); Estimated Glomerular Filt Rate > 60 mL/min (>60); Globulin 2.9 g/dL (1.7-4.1); Glucose 87 mg/dL (70-100); HDL Cholesterol 54 mg/dL (40-60); HEMOLYSIS < 15 (0-50); LDL Cholesterol Calculated 99 mg/dL (<100); Potassium 4.5 mmol/L (3.4-5.1); Sodium 136 mmol/L (137-145); Total Protein 6.9 g/dL (6.3-8.2); Triglycerides 86 mg/dL (35-150)
[2022-10-13 16:22] LABS: Vitamin D 25 Hydroxy (D3) 24.3 ng/mL (30.0-100.0)
[2022-10-13 17:21] LABS: TSH w/ Reflex to FT4 0.46 uIU/mL (0.47-4.68)
[2022-10-13 18:08] LABS: Free T4, Direct Thyroxine 1.38 ng/dL (0.78-2.19)
[2022-10-14 03:34] LABS: RPR Screen Non Reactive (Non Reactive)
[2022-10-14 03:36] LABS: Hepatitis B Core Antibody Negative (Negative); Hepatitis B Surf AB Quant 461.5 mIU/mL (Immunity>9.9)
[2022-10-17 15:23] LABS: Hepatitis B Surface Antigen NEGATIVE s/c (NEGATIVE)
[2022-10-17 15:35] LABS: HIV 1 & 2 Ab/Ag 4th Gen Combo NEGATIVE (NEGATIVE); Hep C Virus Ab w/Reflex Quant NEGATIVE s/c (NEGATIVE)
== END ==
PROVIDERS: Family Provider Family Medicine; PCP Nurse Practitioner Family; Referring Provider Nurse Practitioner Family; Visit Provider Nurse Practitioner Family
DX: Z11.59 Encounter for screening for other viral diseases (principal); E78.5 Hyperlipidemia, unspecified; F41.9 Anxiety disorder, unspecified; E55.9 Vitamin D deficiency, unspecified; Z11.3 Encounter for screening for infections with a predominantly sexual mode of transmission
CPT/HCPCS: 36415; 80053; 80061; 82306; 84439; 84443; 85025; 86592; 86704; 86706; 86803; 87340; 87389

== ENCOUNTER → 2023-08-13 17:25 | Outpatient (CLI) | payer OTHER, SELFPAY ==
--- NOTE | 2023-08-13 17:28 | DI.RAD.S_ITS ---
PROCEDURE: XR FOOT RT MIN 3V INDICATIONS: Right foot injury TECHNIQUE: 3 views of the foot were acquired. COMPARISON: [facility], , FOOT 3V RIGHT, 10/19/2015, 15:32. FINDINGS: Bones: Chronic nonunited fracture involving medial aspect of 2nd metatarsal base is seen with well corticated margin along the fracture site. Fracture line is seen extending to 2nd TMT joint space. No acute fracture or dislocation. Midfoot joint osteoarthritic changes are seen. No suspicious bony lesions. Soft tissues: No tibiotalar joint effusion. Achilles tendon appears normal. 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 No acute fracture or dislocation. Midfoot joint osteoarthritis. Dictated by: Kalin Farrell M.D. on 08/13/2023 at 21:18 Approved by: Kalin Farrell M.D. on 08/13/2023 at 21:20
== END ==
PROVIDERS: Family Provider Family Medicine; PCP Nurse Practitioner Family; Referring Provider Nurse Practitioner Family; Visit Provider Nurse Practitioner Family
DX: S99.921A Unspecified injury of right foot, initial encounter (principal); S92.321K Displaced fracture of second metatarsal bone, right foot, subsequent encounter for fracture with nonunion; M19.071 Primary osteoarthritis, right ankle and foot; X58.XXXA Exposure to other specified factors, initial encounter
CPT/HCPCS: 73630

== ENCOUNTER 2024-08-18 19:57 | Emergency (ER) | payer OTHER, SELFPAY ==
[2024-08-18 20:08] VITALS: BP 136/72; PULSE 84; RESP 16; TEMP 36.6; O2SAT 99; BMI 31.4
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
[2024-08-18] MEDS: IBUPROFEN 400 MG TABLET 800 MG PO (23:47)
[2024-08-18] MEDS: ACETAMINOPHEN 325 MG TABLET 975 MG PO (23:48)
[2024-08-18 23:54] VITALS: BP 159/74; PULSE 78; RESP 16; O2SAT 100
== END 2024-08-18 23:55 | disposition home or self-care (01) ==
PROVIDERS: Emergency Provider Emergency Medicine; Family Provider Family Medicine; PCP Nurse Practitioner Family
DX: M54.16 Radiculopathy, lumbar region (principal); M79.10 Myalgia, unspecified site; V43.52XA Car driver injured in collision with other type car in traffic accident, initial encounter
CPT/HCPCS: 99283